=== PATIENT | male | born 1950 | race Hispanic/Latino ===

== ENCOUNTER → 2018-07-13 | Outpatient (CLI) | payer MEDICARE | END | disposition home or self-care (01) | LOC: RAH 09:12 | PROVIDERS: ATTEND Internal Medicine Gastroenterology | DX: B18.2 Chronic viral hepatitis C (principal); B18.1 Chronic viral hepatitis B without delta-agent | CPT/HCPCS: 76700 ==

== ENCOUNTER → 2018-08-23 | Outpatient (CLI) | payer OTHER, MEDICARE | END | disposition home or self-care (01) | LOC: RAH 08:30 | PROVIDERS: ATTEND Internal Medicine Gastroenterology | DX: K59.01 Slow transit constipation (principal) | CPT/HCPCS: 76700 ==